=== PATIENT | female | born 1950 | race Two or more races ===

== ENCOUNTER 2022-04-29 10:35 | Outpatient (CLI) | payer OTHER | END 2022-04-29 10:45 | disposition home or self-care (01) | LOC: PPH VACUNA 10:35 | PROVIDERS: ATTEND Emergency Medicine Pediatric Emergency Medicine | DX: Z23 Encounter for immunization (principal) ==

== ENCOUNTER 2023-05-01 | Outpatient (CLI) | payer OTHER | END 2023-05-01 00:15 | disposition home or self-care (01) | LOC: PPH VACUNA | PROVIDERS: ATTEND Emergency Medicine Pediatric Emergency Medicine | DX: Z23 Encounter for immunization (principal) ==

== ENCOUNTER 2023-06-11 10:44 | Outpatient (CLI) | payer OTHER | END 2023-06-11 10:56 | disposition home or self-care (01) | LOC: RAD 10:44 | PROVIDERS: ATTEND Orthopaedic Surgery | DX: M25.561 Pain in right knee (principal); M25.511 Pain in right shoulder ==

== ENCOUNTER 2023-06-25 08:56 | Outpatient (CLI) | payer OTHER | END 2023-06-25 09:01 | disposition home or self-care (01) | LOC: SONOGRAMA 08:56 | PROVIDERS: ATTEND Orthopaedic Surgery | DX: M25.511 Pain in right shoulder (principal) ==

== ENCOUNTER 2025-05-16 11:30 | Outpatient (CLI) | payer OTHER | END 2025-05-16 11:38 | disposition home or self-care (01) | LOC: MRI 11:30 | PROVIDERS: ATTEND Internal Medicine | DX: S89.91XA Unspecified injury of right lower leg, initial encounter (principal); F39 Unspecified mood [affective] disorder; E78.00 Pure hypercholesterolemia, unspecified; E55.9 Vitamin D deficiency, unspecified; Z87.891 Personal history of nicotine dependence; N18.2 Chronic kidney disease, stage 2 (mild) | CPT/HCPCS: 73721 ==

== ENCOUNTER 2025-06-07 10:24 | Outpatient (CLI) | payer OTHER | END 2025-06-07 10:26 | disposition home or self-care (01) | LOC: SONOGRAMA 10:24 | DX: M25.512 Pain in left shoulder (principal) ==